=== PATIENT | male | born 1940 | race Caucasian/White ===

== ENCOUNTER 2021-12-08 13:38 | Outpatient (RCR) | payer MEDICARE, SELFPAY | END 2021-12-24 16:27 | disposition home or self-care (01) | LOC: HO.WCC 13:38 | PROVIDERS: PCP Internal Medicine; Visit Provider Physician Assistant | DX: E10.621 Type 1 diabetes mellitus with foot ulcer (principal); E10.51 Type 1 diabetes mellitus with diabetic peripheral angiopathy without gangrene; L97.512 Non-pressure chronic ulcer of other part of right foot with fat layer exposed; I48.91 Unspecified atrial fibrillation; I25.10 Atherosclerotic heart disease of native coronary artery without angina pectoris; I10 Essential (primary) hypertension; Z87.891 Personal history of nicotine dependence; Z79.4 Long term (current) use of insulin; Z95.0 Presence of cardiac pacemaker; Z79.01 Long term (current) use of anticoagulants | CPT/HCPCS: 11042; 99212 ==